=== PATIENT | female | born 1955 | race Asian ===

== ENCOUNTER 2020-06-04 04:09 | Emergency (ER) | payer BC, OTHER ==
[~2020-06-04] VITALS: Ht 154.9 cm; Wt 47.2 kg
[2020-06-04 09:11] VITALS: BP 141/89
[2020-06-04] MEDS ORDERED: ACETAMINOPHEN 500 MG TAB PO ONE ×2 (10:15→10:32)
== END 2020-06-04 10:38 | disposition home or self-care (01) ==
LOC: ER 04:09
DX: S00.83XA Contusion of other part of head, initial encounter (principal); S00.11XA Contusion of right eyelid and periocular area, initial encounter; Y08.89XA Assault by other specified means, initial encounter; Y93.89 Activity, other specified; Y92.89 Other specified places as the place of occurrence of the external cause; Y99.8 Other external cause status
CPT/HCPCS: 70450; 70486; 73100; 73590

== ENCOUNTER 2021-02-10 09:48 | Emergency (ER) | payer BC ==
[~2021-02-10] VITALS: Ht 157.5 cm; Wt 49.9 kg
[2021-02-10 09:48] VITALS: BP 106/74
[2021-02-10 10:23] LABS: Urine Bacteria NONE SEEN /hpf (None Seen); Urine Blood Negative /uL (Negative); Urine Specific Gravity 1.009 (1.001-1.035); Urine WBC <1 /hpf (0 - 5)
[2021-02-10 10:32] LABS: Basophils # (auto) 0 10 ^3/uL (0-0.2); Basophils % (auto) 0.7 % (0.0-2.0); Eosinophils # (auto) 0 10 ^3/uL (0-0.8); Eosinophils % (auto) 0.9 % (0.0-7.0); Hematocrit 38.8 % (36.0-46.0); Hemoglobin 13.6 g/dL (12.2-16.2); Lymphocytes # (auto) 2.5 10 ^3/uL (0.4-5.4); Mean Corpuscular Hemoglobin 30.3 pg (28.0-32.0); Mean Corpuscular Hgb Conc. 35.1 g/dL (32.0-36.0); Mean Corpuscular Volume 86.4 fL (80.0-100.0); Monocytes # (auto) 0.4 10 ^3/uL (0-1.3); Monocytes % (auto) 7.1 % (0.0-12.0); Neutrophils # (auto) 2.1 10 ^3/uL (1.6-8.6); Neutrophils % (auto) 42.3 % (37.0-80.0); Nucleated Red Blood Cells % 0.1 %; Red Blood Cells 4.49 10^6/uL (4.0-5.20); Red Cell Distribution Width 14.3 % (11.8-14.3)
[2021-02-10 10:52] LABS: Albumin 3.6 g/dL (3.4-5.0); Anion Gap 3 (5-15); Blood Urea Nitrogen 22 mg/dL (7-18); Calcium 8.6 mg/dL (8.5-10.1); Carbon Dioxide 29 mmol/L (21-32); Chloride 109 mmol/L (98-107); Glucose 86 mg/dL (74-106); Lipase 121 U/L (73-393); Potassium 4.1 mmol/L (3.5-5.1); Sodium 141 mmol/L (136-145)
[2021-02-10 10:58] LABS: Alanine Aminotransferase 26 U/L (13-56); Alkaline Phosphatase 58 U/L (45-117); Aspartate Aminotransferase 17 U/L (15-37); BUN/Creatinine Ratio 22.4; Bilirubin, Total 0.5 mg/dL (0.2-1.0); GFR African American 73 mL/min; GFR Non-African American 61 mL/min; Total Protein 7.6 g/dL (6.4-8.2)
== END 2021-02-10 12:23 | disposition home or self-care (01) ==
LOC: ER 09:48
DX: K75.9 Inflammatory liver disease, unspecified (principal)
CPT/HCPCS: 36415; 74176; 80053; 81001; 83690; 84484; 85025; 93005